=== PATIENT | female | born 1960 | race Two or more races ===

== ENCOUNTER 2025-02-20 01:29 | Inpatient (IN) | payer OTHER, SELFPAY ==
[~2025-02-20] VITALS: Ht 165.1 cm; Wt 100.9 kg
[2025-02-20 01:59] VITALS: PULSE 77; RESP 16; O2SAT 99
--- NOTE | 2025-02-20 02:05 | ED.PDOC ---
General HPI Comments 64-year-old female came to ER due to abdominal pain. Patient states for the past few hours, she woke up with sudden onset left lower quadrant abdominal pain, constant, sharp, nonradiating, associated with nausea, vomiting, dysuria, and urinary frequency. No fever noted. REVIEW OF SYSTEMS: General: No fever, no chills, or fatigue HEENT: No sore throat, no earache, no congestion, no neck pain. Cardiac: No chest pain. No palpitations. Lungs: No shortness of breath, no cough. GI: Positive nausea, positive vomiting, no diarrhea, no constipation, positive left lower quadrant tenderness : No dysuria, frequency, or urgency. No hematuria. Musculoskeletal: No joint pain , no joint swelling, no extremity edema. Skin: No rash, no itching. Neuro: No headache, no dizziness, no weakness Physical exam General: Awake, alert and oriented. No acute distress. Skin: Skin in warm, dry and intact without rashes or lesions. HEENT: The head is normocephalic and atraumatic. Conjunctivae are clear without exudates or hemorrhage. Sclera is non-icteric. Neck: Normal range of motion. No JVD. Cardiac: Regular rate Abdomen: Left lower quadrant tenderness, left flank tenderness Respiratory: No signs of respiratory distress. No Stridor. Extremities: Upper and lower extremities are atraumatic in appearance without deformity. Neurological: The patient is awake, alert and oriented to person, place, and time with normal speech. Speech is clear. There is no facial asymmetry. Normal gait Psychiatric: Appropriate mood and affect. Good judgement and insight. Chief Complaint: Abdominal Pain Time Seen by MD: 02:05 Reviewed notes: Nurses Notes Allergies: Coded Allergies: NO KNOWN ALLERGIES (Unverified , 02/20/25) Information Source: Patient Mode of Arrival: Ambulatory Severity: Moderate Inability to void: Mild Timing: Hours Duration: Since onset Has not urinated for: Minutes Prehospital treatment: None Onset: Spontaneous Symptoms: Dysuria, Frequency Location: Abdomen associated signs and symptoms: Abdominal Pain, Nausea, Vomiting, Dysuria, Frequency Past Medical History PAST MEDICAL HISTORY: GERD Surgical History: Denies all surgeries [employer] History: Denies all [employer] Hx Family History Family History: Reviewed,noncontributory to illness Social History Smoker: Non-Smoker Alcohol: Denies ETOH Use Drugs: Denies Drug Use Lives In: Home Was a procedure done? Was a procedure done?: No Differential Diagnosis Kidney stone (Female): Ovarian torsion, Pyelonephritis, Renal failure, Strain, Urinary obstruction, Urolithiasis Kidney stone (Male): N/A Penile/Scrotal: N/A Urinary Problem (Male): N/A Urinary Problem (Female): Pyelonephritis, Urinary retention, Urolithiasis, UTI X-Ray, Labs, Meds, VS Vital Signs Date Time Temp Pulse Resp B/P (MAP) Pulse Ox O2 Delivery O2 Flow Rate FiO2 02/20/25 01:59 98.4 77 16 117/83 (94) 99 98.4 02/20/25 01:59 77 16 99 Room Air* 0 21 02/20/25 01:59 98.4 77 16 117/83 (94) 99 98.4 Lab Test 02/20/25 02:00 02/20/25 01:55 Range/Units White Blood Count 13.5 H 4.4-10.8 10^3/uL Red Blood Count 4.81 4.0-5.20 10^6/uL Hemoglobin 14.2 12.2-16.2 g/dL Hematocrit 42.2 36.0-46.0 % Mean Corpuscular Volume 87.7 80.0-100.0 fL Mean Corpuscular Hemoglobin 29.5 28.0-32.0 pg Mean Corpuscular Hemoglobin Concent 33.6 32.0-36.0 g/dL Red Cell Distribution Width 14.3 11.8-14.3 % Platelet Count 322 140-450 10^3/uL Mean Platelet Volume 8.7 6.9-10.8 fL Neutrophils (%) (Auto) 80.6 H 37.0-80.0 % Lymphocytes (%) (Auto) 15.9 10.0-50.0 % Monocytes (%) (Auto) 2.8 0.0-12.0 % Eosinophils (%) (Auto) 0.3 0.0-7.0 % Basophils (%) (Auto) 0.4 0.0-2.0 % Neutrophils # (Auto) 10.9 H 1.6-8.6 10 ^3/uL Lymphocytes # (Auto) 2.1 0.4-5.4 10 ^3/uL Monocytes # (Auto) 0.4 0-1.3 10 ^3/uL Eosinophils # (Auto) 0 0-0.8 10 ^3/uL Basophils # (Auto) 0.1 0-0.2 10 ^3/uL Nucleated Red Blood Cells 0.0 % Sodium Level 141 136-145 mmol/L Potassium Level 3.6 3.5-5.1 mmol/L Chloride Level 105 98-107 mmol/L Carbon Dioxide Level 25 20-31 mmol/L Anion Gap 11 5-15 Blood Urea Nitrogen 17 9-23 mg/dL Creatinine 1.33 H 0.550-1.02 mg/dL Glomerular Filtration Rate Calc 45 >90 mL/min BUN/Creatinine Ratio 12.8 10.0-20.0 Serum Glucose 137 H 74-106 mg/dL Calcium Level 11.5 H 8.7-10.4 mg/dL Urine Color Yellow Yellow Urine Clarity Ex.turbid Clear Urine pH 8.0 5.0-9.0 Urine Specific [place] 1.023 1.001-1.035 Urine Protein Trace H Negative Urine Ketones 1+ H Negative Urine Blood Trace H Negative /uL Urine Nitrite Negative Negative Urine Bilirubin Negative Negative Urine Urobilinogen Normal Negative mg/dL Urine Leukocyte Esterase 2+ Negative /uL Urine RBC 44 0 - 4 /hpf Urine Microscopic WBC 5 0-5 /HPF Urine Squamous Epithelial Cells Few <5 /hpf Urine Renal Epithelial Cells Few None Seen /hpf Urine Amorphous Crystals Mod None Seen /hpf Urine Bacteria Many H None Seen /hpf Urine Hyaline Casts Few 0 - 2 /lpf Urine Granular Casts Many 0 /lpf Urine Mucus Few None Seen Urine Glucose Normal Normal mg/dL Current Medications Medications (Trade) Dose Ordered Sig/Violet Route Start Time Stop Time Status Last Admin Ketorolac Tromethamine (Toradol Injection) 45 mg ONCE ONCE IM 02/20/25 02:00 02/20/25 02:01 DC 02/20/25 04:02 Tramadol HCl (Ultram) 50 mg ONCE ONCE PO 02/20/25 02:00 02/20/25 02:01 DC 02/20/25 04:02 Tamsulosin HCl (Flomax) 0.4 mg ONCE ONCE PO 02/20/25 03:30 02/20/25 03:31 DC 02/20/25 04:02 Time of 1ST Reevaluation: 02:00 Reevaluation 1ST: Unchanged Patient Education/Counseling: Other (Need for admission) Family Education/Counseling: Other (Need for admission) SEPSIS Sepsis Screen Physician Orders Ct Ab Pel Wo Con-No Oral Or Iv (02/20/25 01:54) Vital Signs Date Time Temp Pulse Resp B/P (MAP) Pulse Ox O2 Delivery O2 Flow Rate FiO2 02/20/25 01:59 98.4 77 16 117/83 (94) 99 98.4 02/20/25 01:59 77 16 99 Room Air* 0 21 02/20/25 01:59 98.4 77 16 117/83 (94) 99 98.4 Laboratory Tests Test 02/20/25 02:00 White Blood Count 13.5 10^3/uL (4.4-10.8) H Medications Medications Dose Ordered Sig/Violet Route Start Time Stop Time Status Last Admin Dose Admin Ketorolac Tromethamine 45 mg ONCE ONCE IM 02/20/25 02:00 02/20/25 02:01 DC 02/20/25 04:02 Tamsulosin HCl 0.4 mg ONCE ONCE PO 02/20/25 03:30 02/20/25 03:31 DC 02/20/25 04:02 Tramadol HCl 50 mg ONCE ONCE PO 02/20/25 02:00 02/20/25 02:01 DC 02/20/25 04:02 Departure 1 Departure Time of Disposition: 03:23 Impression: Primary Impression: Hydronephrosis with urinary obstruction due to renal calculus Additional Impression: UTI (urinary tract infection) Disposition: HOME / SELF CARE / HOMELESS Condition: Stable Discharged With: Significant Other Comments 64-year-old female with left lower quadrant pain CT showsMild left hydroureteronephrosis secondary to a partially obstructing punctate distal ureteral calculus. Additional nonobstructing left inferior pole pelvocaliceal calcification. Urinalysis concerning for superimposed infection Antibiotics , analgesics and IV fluids initiated in the emergency department Patient admitted to hospitalist service for further treatment, evaluation and monitoring. Extensive evaluation was performed in attempt to identify or rule out: (See dif ferential diagnosis section) The following tests were ordered, and results were reviewed by me and discussed with patient and her daughter: (See diagnostic results section) The following test were independently interpreted by me: N/A I reviewed and agreed with the following test results read by other providers: N/A I reviewed the following notes from the pt's past medical encounters: N/A Additional information was gathered from interviewing the following independent historians: N/A Discussion of management or test interpretation with external physician/other qualified health care nurse rn: N/A Addressed an acute or chronic illness that poses a threat to life or bodily function: Obstructing urolithiasis, hydronephrosis, UTI Decision regarding hospitalization or escalation of hospital level of care: Risk and benefits of admission for further treatment of patient's condition was considered. Due to patient's current clinical condition, high risk of decline and poor outcome if discharged and need for further inpatient management and monitoring, patient will be admitted to the hospital. Discussed with patient. Drug therapy requiring intensive monitoring for toxicity: Parenteral controlled substances: IV morphine Decision regarding elective major surgery with identified patient or procedure risk factors: N/A Decision regarding emergency major surgery: N/A Decision not to resuscitate or to de-escalate care because of poor prognosis: N/A Diagnosis or treatment significantly limited by social determinants of health: N/A Critical Care Note Critical Care Time?: No Stability Stability form required: No Heart Score Heart Score: Heart Score Response (Comments) Value History N/A 0 EKG N/A 0 Age N/A 0 Risk Factors N/A 0 Troponin N/A 0 Total 0 I personally scribed for DAVIN REICH MD ([email or web address]) on 02/20/25 at 02:05. Electronically submitted by Orestes Hermosillo ([email or web address]). DAVIN REICH MD Feb 20, 2025 02:05
[2025-02-20 02:23] LABS: Chloride 105 mmol/L (98-107); Potassium 3.6 mmol/L (3.5-5.1); Sodium 141 mmol/L (136-145)
[2025-02-20 02:24] LABS: Anion Gap 11 (5-15); Carbon Dioxide 25 mmol/L (20-31)
[2025-02-20 02:26] LABS: Calcium 11.5 mg/dL (8.7-10.4)
[2025-02-20 02:28] LABS: Basophils # (auto) 0.1 10 ^3/uL (0-0.2); Basophils % (auto) 0.4 % (0.0-2.0); Eosinophils # (auto) 0 10 ^3/uL (0-0.8); Eosinophils % (auto) 0.3 % (0.0-7.0); Hematocrit 42.2 % (36.0-46.0); Hemoglobin 14.2 g/dL (12.2-16.2); Lymphocytes # (auto) 2.1 10 ^3/uL (0.4-5.4); Lymphocytes % (auto) 15.9 % (10.0-50.0); Mean Corpuscular Hemoglobin 29.5 pg (28.0-32.0); Mean Corpuscular Hgb Conc. 33.6 g/dL (32.0-36.0); Mean Corpuscular Volume 87.7 fL (80.0-100.0); Monocytes # (auto) 0.4 10 ^3/uL (0-1.3); Monocytes % (auto) 2.8 % (0.0-12.0); Neutrophils # (auto) 10.9 10 ^3/uL (1.6-8.6); Neutrophils % (auto) 80.6 % (37.0-80.0); Platelet Count (auto) 322 10^3/uL (140-450); Red Blood Cells 4.81 10^6/uL (4.0-5.20); Red Cell Distribution Width 14.3 % (11.8-14.3); White Blood Cell 13.5 10^3/uL (4.4-10.8)
[2025-02-20 02:29] LABS: BUN/Creatinine Ratio 12.8 (10.0-20.0); Blood Urea Nitrogen 17 mg/dL (9-23)
[2025-02-20 02:30] LABS: Glucose 137 mg/dL (74-106)
[2025-02-20 02:57] LABS: Urine Amorphous Crystal MOD /hpf (None Seen); Urine Bacteria MANY /hpf (None Seen); Urine Blood TRACE /uL (Negative); Urine Clarity Ex.Turbid (Clear); Urine Color Yellow (Yellow); Urine Hyaline Cast FEW /lpf (0 - 2); Urine Mucus FEW (None Seen); Urine Protein, UAD TRACE (Negative); Urine Specific Gravity 1.023 (1.001-1.035); Urine Squamous Epithelial Cell FEW /hpf (<5); Urine Urobilinogen Normal (Negative); Urine WBC 5 /HPF (0-5)
--- NOTE | 2025-02-20 03:08 | DVH ---
Exam: CT CT AB PEL WO CON-NO ORAL OR IV History: Left lower quadrant pain Comparison Study: None Technique: Multidetector spiral CT of the abdomen was performed from lung bases to pubic symphysis. I maging was performed without IV contrast. Axial, coronal and sagittal multiplanar reformats were obta ined from the axial data set by the technologist. Radiation Dose : 1. Abdomen/Pelvis: CTDIvol 21.7 mGy, DLP 1411.86 mGy*cm. Findings: Evaluation of solid organs is limited due to lack of intravenous contrast use. Lung Bases: No acute or significant lung base finding. Normal heart size. No pleural or pericardial effusion. Bilateral breast implants. Liver: The liver is normal in size. No focal lesions. Gallbladder and Biliary Tree: Dense calcific debris within the gallbladder. Spleen: Unremarkable Pancreas: The pancreas is grossly normal in appearance. Adrenal Glands: Unremarkable Kidneys: Mild left hydronephrosis and ureteral dilatation secondary to a punctate partially obstructi ng distal ureteral calculus just proximal to the ureterovesicular junction. Punctate nonobstructing c alcification within the left inferior renal pole. Left interpolar renal cortical cyst measures 4.8 cm . Bladder: Grossly unremarkable for degree of distention. Bowel: Moderate hiatal hernia. The stomach is grossly normal in appearance. Small bowel and colon are normal in caliber and distribution. Diverticula are noted throughout the descending and sigmoid colo n without CT evidence of acute diverticulitis. The appendix is normal. Ascites: Absent Lymphadenopathy: No mesenteric, retroperitoneal or periportal lymphadenopathy. Abdominal Wall and Mesentery: Unremarkable. Vasculature: The visualized abdominal aorta is normal in size and caliber. Evaluation of abdominal a nd pelvic vessels is limited due to lack of intravenous contrast. Pelvic Organs: Unremarkable Musculoskeletal: No aggressive focal bony lesions, acute fractures or dislocation. IMPRESSION: 1. Mild left hydroureteronephrosis secondary to a partially obstructing punctate distal ureteral calc ulus. Additional nonobstructing left inferior pole pelvocaliceal calcification. 2. Cholelithiasis. 3. Hiatal hernia. 4. Diverticulosis coli without CT evidence of Acute diverticulitis. Radiation optimization: All CT scans at this facility use at least one of these dose optimization divya hniques: automated exposure control mA and/or kV adjustment per patient size (includes targeted exam s where dose is matched to clinical indication) or iterative reconstruction.
[2025-02-20] MEDS: SODIUM CHLORIDE 0.9% 1,000 ML IV ONE ×2 (03:30→08:30)
[2025-02-20] MEDS: cefTRIAXone 1GM/50ML D5W 50 ML IV ONE (03:30)
[2025-02-20] MEDS: ONDANSETRON HCL 4 MG/2 ML VIAL IV ONE (03:30)
[2025-02-20] MEDS: MORPHINE SULFATE INJ 2 MG/ml SYRG IV ONE (03:30)
[2025-02-20] MEDS: traMADol HCL 50 MG TAB PO ONE (04:02)
[2025-02-20] MEDS: TAMSULOSIN HYDROCHLORIDE 0.4 MG CAP PO ONE (04:02)
[2025-02-20] MEDS: KETOROLAC TROMETH 30 MG/ML 1ML VIAL IM ONE (04:02)
[2025-02-20] MEDS ORDERED: MORPHINE SULFATE INJ 2 MG/ml SYRG IV PRN ×2 (06:00→08:30)
[2025-02-20] MEDS ORDERED: ACETAMINOPHEN 325 MG TAB PO PRN (08:30)
[2025-02-20] MEDS ORDERED: ONDANSETRON HCL 4 MG/2 ML VIAL IV PRN (08:30)
--- NOTE | 2025-02-20 08:39 | DVHHP2 ---
History of Present Illness History of Present Illness 64-year-old female past medical history of GERD came to ER due to abdominal pain X 1 day. Patient states for the past few hours before presentation, she woke up with sudden onset left lower quadrant abdominal pain, constant, sharp, nonradiating, associated with nausea, vomiting, dysuria, and urinary frequency. No fever noted. No diarrhea, no sick contacts,. Review of Systems Allergies: Coded Allergies: NO KNOWN ALLERGIES (Unverified , 02/20/25) Medications Current Medications Medications Dose Ordered Sig/Violet Route Start Time Stop Time Status Last Admin Dose Admin Morphine Sulfate 2 mg ONCE PRN IV 02/20/25 06:00 Exam Vital Signs Vital Signs Date Time Temp Pulse Resp B/P (MAP) Pulse Ox O2 Delivery O2 Flow Rate FiO2 02/20/25 08:07 98.7 90 16 128/73 (91) 97 98.7 02/20/25 08:07 Room Air 02/20/25 01:59 0 21 Exam GEN: Healthy appearing, well-developed, NAD. HEENT: NC/AT; MMM. CV: RRR, no m/r/g. LUNGS: CTAB, no w/r/c. ABD: Soft, NT/ND, NBS, no masses or organomegaly. EXT: skin Warm, well perfused. no rashes. No clubbing, cyanosis, or edema. NEURO: Ambulating with no limitations. No focal deficits. Labs/Xrays Labs Test 02/20/25 02:00 02/20/25 01:55 Range/Units White Blood Count 13.5 H 4.4-10.8 10^3/uL Red Blood Count 4.81 4.0-5.20 10^6/uL Hemoglobin 14.2 12.2-16.2 g/dL Hematocrit 42.2 36.0-46.0 % Mean Corpuscular Volume 87.7 80.0-100.0 fL Mean Corpuscular Hemoglobin 29.5 28.0-32.0 pg Mean Corpuscular Hemoglobin Concent 33.6 32.0-36.0 g/dL Red Cell Distribution Width 14.3 11.8-14.3 % Platelet Count 322 140-450 10^3/uL Mean Platelet Volume 8.7 6.9-10.8 fL Neutrophils (%) (Auto) 80.6 H 37.0-80.0 % Lymphocytes (%) (Auto) 15.9 10.0-50.0 % Monocytes (%) (Auto) 2.8 0.0-12.0 % Eosinophils (%) (Auto) 0.3 0.0-7.0 % Basophils (%) (Auto) 0.4 0.0-2.0 % Neutrophils # (Auto) 10.9 H 1.6-8.6 10 ^3/uL Lymphocytes # (Auto) 2.1 0.4-5.4 10 ^3/uL Monocytes # (Auto) 0.4 0-1.3 10 ^3/uL Eosinophils # (Auto) 0 0-0.8 10 ^3/uL Basophils # (Auto) 0.1 0-0.2 10 ^3/uL Nucleated Red Blood Cells 0.0 % Sodium Level 141 136-145 mmol/L Potassium Level 3.6 3.5-5.1 mmol/L Chloride Level 105 98-107 mmol/L Carbon Dioxide Level 25 20-31 mmol/L Anion Gap 11 5-15 Blood Urea Nitrogen 17 9-23 mg/dL Creatinine 1.33 H 0.550-1.02 mg/dL Glomerular Filtration Rate Calc 45 >90 mL/min BUN/Creatinine Ratio 12.8 10.0-20.0 Serum Glucose 137 H 74-106 mg/dL Calcium Level 11.5 H 8.7-10.4 mg/dL Urine Color Yellow Yellow Urine Clarity Ex.turbid Clear Urine pH 8.0 5.0-9.0 Urine Specific [place] 1.023 1.001-1.035 Urine Protein Trace H Negative Urine Ketones 1+ H Negative Urine Blood Trace H Negative /uL Urine Nitrite Negative Negative Urine Bilirubin Negative Negative Urine Urobilinogen Normal Negative mg/dL Urine Leukocyte Esterase 2+ Negative /uL Urine RBC 44 0 - 4 /hpf Urine Microscopic WBC 5 0-5 /HPF Urine Squamous Epithelial Cells Few <5 /hpf Urine Renal Epithelial Cells Few None Seen /hpf Urine Amorphous Crystals Mod None Seen /hpf Urine Bacteria Many H None Seen /hpf Urine Hyaline Casts Few 0 - 2 /lpf Urine Granular Casts Many 0 /lpf Urine Mucus Few None Seen Urine Glucose Normal Normal mg/dL Assessment/Plan Assessment/Plan Diagnosis: Left nephrolithiasis with hydronephrosis Acute complicated cystitis Intractable abdominal pain Intractable nausea and vomiting GERD -IV fluids - IV ceftriaxone -Prn pain medication Tylenol, [place], morphine -Antiemetics prn -Protonix Regular diet Protonix IV daily Ambulating no Lovenox Med surge Full code Plan discussed with: Patient Date of Service: Feb 20, 2025 Billing Provider: FINA BRYANT MD Common Visit Codes: [id number] INP/OBS CARE (HIGH) Secondary Visit Codes: [id number] CARE PLAN 30 MINUTES FINA BRYANT MD Feb 20, 2025 08:39
[2025-02-20] MEDS: cefTRIAXone 1GM/50ML D5W 50 ML IV SCH (09:00)
[2025-02-20 09:54] VITALS: PULSE 88; RESP 18; O2SAT 98
[2025-02-20 10:00] VITALS: BP 122/70; PULSE 93; RESP 16; TEMP 98.3; O2SAT 98
[2025-02-20] MEDS: PANTOPRAZOLE 40 MG/10 ML VIAL INJ IV SCH (10:01)
[2025-02-20] MEDS: HYDROcodone-ACET 5/325MG TAB PO PRN (10:01)
[2025-02-20 17:00] VITALS: BP 103/55; PULSE 68; RESP 18; TEMP 98.5; O2SAT 98; O2SAT 99
[2025-02-20] MEDS: SODIUM CHLORIDE 0.9% 1,000 ML IV SCH (18:00)
[2025-02-20 21:00] VITALS: BP 119/48; PULSE 78; RESP 18; TEMP 98.1; O2SAT 98
[2025-02-21] VITALS (7 sets, daily range): BP systolic 109–137; BP diastolic 50–78; PULSE 79–96; RESP 17–19; TEMP 97.6–99.4; O2SAT 96–99
[2025-02-21 06:48] LABS: Basophils # (auto) 0.1 10 ^3/uL (0-0.2); Basophils % (auto) 0.5 % (0.0-2.0); Eosinophils # (auto) 0.1 10 ^3/uL (0-0.8); Eosinophils % (auto) 0.7 % (0.0-7.0); Hematocrit 36.7 % (36.0-46.0); Hemoglobin 12.6 g/dL (12.2-16.2); Lymphocytes # (auto) 1.9 10 ^3/uL (0.4-5.4); Lymphocytes % (auto) 18.6 % (10.0-50.0); Mean Corpuscular Hemoglobin 30.1 pg (28.0-32.0); Mean Corpuscular Hgb Conc. 34.3 g/dL (32.0-36.0); Monocytes # (auto) 0.7 10 ^3/uL (0-1.3); Monocytes % (auto) 7.1 % (0.0-12.0); Neutrophils # (auto) 7.4 10 ^3/uL (1.6-8.6); Neutrophils % (auto) 73.1 % (37.0-80.0); Platelet Count (auto) 226 10^3/uL (140-450); Red Blood Cells 4.17 10^6/uL (4.0-5.20); Red Cell Distribution Width 14.2 % (11.8-14.3); White Blood Cell 10.2 10^3/uL (4.4-10.8)
[2025-02-21 07:09] LABS: Alanine Aminotransferase 10 U/L (7-40); Albumin 3.3 g/dL (3.2-4.8); Alkaline Phosphatase 74 U/L (46-116); Anion Gap 8 (5-15); Aspartate Aminotransferase 13 U/L (<34); BUN/Creatinine Ratio 10.9 (10.0-20.0); Bilirubin, Total 0.6 mg/dL (0.2-1.0); Blood Urea Nitrogen 18 mg/dL (9-23); Calcium 9.6 mg/dL (8.7-10.4); Carbon Dioxide 23 mmol/L (20-31); Glucose 92 mg/dL (74-106); Sodium 143 mmol/L (136-145)
[2025-02-21 07:12] LABS: Chloride 112 mmol/L (98-107)
[2025-02-21] MEDS ORDERED: MORPHINE SULFATE 4 MG/ML SYR/VIAL IV PRN (15:00)
[2025-02-21] MEDS: TAMSULOSIN HYDROCHLORIDE 0.4 MG CAP PO SCH (15:26)
--- NOTE | 2025-02-21 15:37 | DVHPNRES ---
Progress Note Date Seen: Feb 21, 2025 Resident Creating Document: KUSHAL ROSARIO RESIDENT Has the PT tested + for MRSA If YES, has PT been informed?: No Medical Necessity Reason Pt with a Central, PICC or Fol: No Subjective Review of Systems 64-year-old female past medical history of GERD came to ER due to abdominal pain X 1 day. Patient states for the past few hours before presentation, she woke up with sudden onset left lower quadrant abdominal pain, constant, sharp, nonradiating, associated with nausea, vomiting, dysuria, and urinary frequency. No fever noted. No diarrhea, no sick contacts,. 02/21/25: CT scan: Mild left hydroureteronephrosis secondary to a partially obstructing punctate distal ureteral calculus. Additional nonobstructing left inferior pole pelvocaliceal calcification.Cholelithiasis, Hiatal hernia, Diverticulosis coli without CT evidence of Acute diverticulitis. UA: UTI Objective vital signs Vital Sign Date Time Temp Pulse Resp B/P (MAP) Pulse Ox O2 Delivery O2 Flow Rate FiO2 02/21/25 13:00 98.5 85 17 118/61 (80) 99 98.5 02/21/25 08:15 Room Air* 0 21 Total Intake and Output 02/20/25 02/20/25 02/21/25 15:00 23:00 07:00 Intake Total 600 ml 200 ml Balance 600 ml 200 ml medications Current Medications Medications Dose Ordered Sig/Violet Route Start Time Stop Time Status Last Admin Dose Admin Morphine Sulfate 2 mg ONCE PRN IV 02/20/25 06:00 Acetaminophen/ Hydrocodone Bitart 1 tab Q4HP PRN PO 02/20/25 08:30 02/21/25 08:32 1 TAB Ondansetron HCl 4 mg Q4HP PRN IV 02/20/25 08:30 Acetaminophen 650 mg Q6HP PRN PO 02/20/25 08:30 Morphine Sulfate 2 mg Q4HPRN PRN IV 02/20/25 08:30 Cancel Sodium Chloride 1,000 ml @ 75 mls/hr [id number] IV 02/20/25 18:00 02/20/25 21:48 75 MLS/HR Pantoprazole Sodium 40 mg DAILY IV 02/20/25 10:00 02/21/25 08:32 40 MG Ceftriaxone Sodium 50 ml @ 100 mls/hr DAILY@09 IV 02/20/25 09:00 02/21/25 08:33 100 MLS/HR Tamsulosin HCl 0.8 mg QPM PO 02/21/25 15:00 02/21/25 15:26 0.8 MG Morphine Sulfate 2 mg Q4HPRN PRN IV 02/21/25 15:00 Examination GEN: Healthy appearing, well-developed, NAD. HEENT: NC/AT; MMM. CV: RRR, no m/r/g. LUNGS: CTAB, no w/r/c. ABD: Soft, mild tenderness suprapubic , NBS, no masses or organomegaly. EXT: skin Warm, well perfused. no rashes. No clubbing, cyanosis, or edema. NEURO: Ambulating with no limitations. No focal deficits. laboratory and microbiology Laboratory Tests 02/21/25 06:33 Test 02/21/25 06:33 Range/Units Serum Glucose 92 74-106 mg/dL Problem List/Assessment/Plan Problem List/Assessment/Plan #Left nephrolithiasis with hydronephrosis #Acute complicated cystitis #Intractable abdominal pain #Intractable nausea and vomiting #GERD #Cholelithiasis #Hiatal hernia Regular diet -IV fluids - IV ceftriaxone -Prn pain medication Tylenol, [place], morphine -Antiemetics prn -Protonix Patient is ambulating no Lovenox Full code Case discussed with Dr Bazzi Plan discussed with: Patient, Other My Orders My Orders Orders - KUSHAL ROSARIO Procedure Category Date Status Time Tamsulosin PHA 02/21/25 In Process Hydrochloride (Flomax) 15:00 Strain All Urine For BETTYE 02/21/25 In Process Stones 14:48 Date of Service: Feb 21, 2025 Billing Provider: HARPREET BAZZI MD Common Visit Codes: [id number] INP/OBS CARE(HIGH) KUSHAL ROSARIO RESIDENT Feb 21, 2025 15:37 HARPREET BAZZI MD Feb 28, 2025 21:24
[2025-02-22 01:00] VITALS: BP 107/62; PULSE 77; RESP 17; TEMP 98.5; O2SAT 96
[2025-02-22 04:59] VITALS: BP 108/54; PULSE 68; RESP 16; TEMP 98.4; O2SAT 96
[2025-02-22 08:30] VITALS: BP 127/78; PULSE 76; RESP 18; TEMP 98.8; O2SAT 97
[2025-02-22] MEDS ORDERED: NAPR-957 PO (10:30)
[2025-02-22 12:45] VITALS: BP 128/74; PULSE 75; RESP 18; TEMP 98.3; O2SAT 97
[2025-02-22 13:30] VITALS: BP 128/74; PULSE 75; RESP 18; TEMP 98.3; O2SAT 97
--- NOTE | 2025-02-22 19:12 | DVHDSRES ---
Discharge Summary Date of Admission Resident Creating Document: KUSHAL ROSARIO RESIDENT Feb 20, 2025 at 08:29 Date of Discharge: Feb 22, 2025 Admitting Diagnosis #Left nephrolithiasis with hydronephrosis #Acute complicated cystitis Labs/Diagnostic Data: Laboratory Results Test 02/21/25 06:33 02/20/25 01:55 White Blood Count 10.2 10^3/uL (4.4-10.8) Red Blood Count 4.17 10^6/uL (4.0-5.20) Hemoglobin 12.6 g/dL (12.2-16.2) Hematocrit 36.7 % (36.0-46.0) Mean Corpuscular Volume 88.0 fL (80.0-100.0) Mean Corpuscular Hemoglobin 30.1 pg (28.0-32.0) Mean Corpuscular Hemoglobin Concent 34.3 g/dL (32.0-36.0) Red Cell Distribution Width 14.2 % (11.8-14.3) Platelet Count 226 10^3/uL (140-450) Mean Platelet Volume 8.3 fL (6.9-10.8) Neutrophils (%) (Auto) 73.1 % (37.0-80.0) Lymphocytes (%) (Auto) 18.6 % (10.0-50.0) Monocytes (%) (Auto) 7.1 % (0.0-12.0) Eosinophils (%) (Auto) 0.7 % (0.0-7.0) Basophils (%) (Auto) 0.5 % (0.0-2.0) Neutrophils # (Auto) 7.4 10 ^3/uL (1.6-8.6) Lymphocytes # (Auto) 1.9 10 ^3/uL (0.4-5.4) Monocytes # (Auto) 0.7 10 ^3/uL (0-1.3) Eosinophils # (Auto) 0.1 10 ^3/uL (0-0.8) Basophils # (Auto) 0.1 10 ^3/uL (0-0.2) Nucleated Red Blood Cells 0.0 % Sodium Level 143 mmol/L (136-145) Potassium Level 4.0 mmol/L (3.5-5.1) Chloride Level 112 mmol/L (98-107) Carbon Dioxide Level 23 mmol/L (20-31) Anion Gap 8 (5-15) Blood Urea Nitrogen 18 mg/dL (9-23) Creatinine 1.65 mg/dL (0.550-1.02) Glomerular Filtration Rate Calc 35 mL/min (>90) BUN/Creatinine Ratio 10.9 (10.0-20.0) Serum Glucose 92 mg/dL (74-106) Calcium Level 9.6 mg/dL (8.7-10.4) Total Bilirubin 0.6 mg/dL (0.2-1.0) Aspartate Amino Transferase (AST) 13 U/L (<34) Alanine Aminotransferase (ALT) 10 U/L (7-40) Alkaline Phosphatase 74 U/L (46-116) Total Protein 6.0 g/dL (5.7-8.2) Albumin 3.3 g/dL (3.2-4.8) Urine Color Yellow (Yellow) Urine Clarity Ex.turbid (Clear) Urine pH 8.0 (5.0-9.0) Urine Specific [place] 1.023 (1.001-1.035) Urine Protein Trace (Negative) Urine Ketones 1+ (Negative) Urine Blood Trace /uL (Negative) Urine Nitrite Negative (Negative) Urine Bilirubin Negative (Negative) Urine Urobilinogen Normal mg/dL (Negative) Urine Leukocyte Esterase 2+ /uL (Negative) Urine RBC 44 /hpf (0 - 4) Urine Microscopic WBC 5 /HPF (0-5) Urine Squamous Epithelial Cells Few /hpf (<5) Urine Renal Epithelial Cells Few /hpf (None Seen) Urine Amorphous Crystals Mod /hpf (None Seen) Urine Bacteria Many /hpf (None Seen) Urine Hyaline Casts Few /lpf (0 - 2) Urine Granular Casts Many /lpf (0) Urine Mucus Few (None Seen) Urine Glucose Normal mg/dL (Normal) Other Laboratory Tests 02/21/25 06:33 Brief Hx & Hospital Course: 64-year-old female with a history of GERD presented to the ED with one day of constant, sharp, non-radiating left lower quadrant abdominal pain, associated with nausea, vomiting, dysuria, and urinary frequency. She denied fever, diarrhea, or sick contacts. CT scan on 02/21/25 revealed mild left hydroureteronephrosis secondary to a partially obstructing punctate distal ureteral calculus, additional nonobstructing left inferior pole pelvocaliceal calcification, cholelithiasis, hiatal hernia, and diverticulosis coli without signs of acute diverticulitis. Urinalysis was consistent with UTI. Nurse notes documented passage of two tiny calculi in urine. She was treated with IV fluids, IV ceftriaxone, antiemetics, and pain control with Tylenol, Riley, and morphine. She tolerated a regular diet and remained hemodynamically stable and ambulatory throughout hospitalization. Discharge Condition: Stable, pain and nausea improved, tolerating oral intake, ambulating independently. Discharge Disposition: Home Case discussed with Dr Bazzi Operations or Procedures Findings: Evaluation of solid organs is limited due to lack of intravenous contrast use. Lung Bases: No acute or significant lung base finding. Normal heart size. No pleural or pericardial effusion. Bilateral breast implants. Liver: The liver is normal in size. No focal lesions. Gallbladder and Biliary Tree: Dense calcific debris within the gallbladder. Spleen: Unremarkable Pancreas: The pancreas is grossly normal in appearance. Adrenal Glands: Unremarkable Kidneys: Mild left hydronephrosis and ureteral dilatation secondary to a punctate partially obstructing distal ureteral calculus just proximal to the ureterovesicular junction. Punctate nonobstructing calcification within the left inferior renal pole. Left interpolar renal cortical cyst measures 4.8 cm. Bladder: Grossly unremarkable for degree of distention. Bowel: Moderate hiatal hernia. The stomach is grossly normal in appearance. Small bowel and colon are normal in caliber and distribution. Diverticula are noted throughout the descending and sigmoid colon without CT evidence of acute diverticulitis. The appendix is normal. Ascites: Absent Lymphadenopathy: No mesenteric, retroperitoneal or periportal lymphadenopathy. Abdominal Wall and Mesentery: Unremarkable. Vasculature: The visualized abdominal aorta is normal in size and caliber. Evaluation of abdominal and pelvic vessels is limited due to lack of intravenous contrast. Pelvic Organs: Unremarkable Musculoskeletal: No aggressive focal bony lesions, acute fractures or dislocation. IMPRESSION: 1. Mild left hydroureteronephrosis secondary to a partially obstructing punctate distal ureteral calculus. Additional nonobstructing left inferior pole pelvocaliceal calcification. 2. Cholelithiasis. 3. Hiatal hernia. 4. Diverticulosis coli without CT evidence of Acute diverticulitis. Condition at Discharge: Stable Final Diagnosis/Problems List #Left nephrolithiasis with hydronephrosis #Acute complicated cystitis #Intractable abdominal pain #Intractable nausea and vomiting #GERD #Cholelithiasis #Hiatal hernia Discharge Disposition: Home Discharge Instruct/Medications Diet: Consistent carbohydrate, Cardiac 2g Na,low cholest Activity: Light activity Follow Up/Referral: fu with pcp Medications: see prescription Discharge Statement: "Patient was advised to return to the ER or call 911 if any headaches, dizziness, shortness of breath, chest pain, abdominal pain, bleeding, fevers, or worsening of medical condition. Patient was counseled about treatment plan, medications, possible side effects, patientverbalized understanding. All questions were answered to the best of my ability. This discharge took greater then 30 minutes in planning, reviewing documentation, counseling the patient, and discussing with other team members." ASSESSMENT ASSESSMENT Assessment kidney stones Date of Service: Feb 22, 2025 Billing Provider: HARPREET BAZZI MD Common Visit Codes: 44143-EER/OBS DISCH DAY >30min KUSHAL ROSARIO RESIDENT Feb 22, 2025 19:12 HARPREET BAZZI MD Feb 28, 2025 22:23
== END 2025-02-22 16:32 | disposition home or self-care (01) | DRG 690 ==
LOC: ER 01:29 → OVERFLOW 08:29 → WEST WING 21:23
PROVIDERS: ADMIT Student in an Organized Health Care Education/Training Program; ATTEND Student in an Organized Health Care Education/Training Program
DX: N13.6 Pyonephrosis (principal); K21.9 Gastro-esophageal reflux disease without esophagitis; K44.9 Diaphragmatic hernia without obstruction or gangrene; K80.20 Calculus of gallbladder without cholecystitis without obstruction
CPT/HCPCS: 36415; 74176; 80048; 80053; 81001; 85025; 96365; G0378; J1885; J2470